=== PATIENT | male | born 1950 | race Caucasian/White ===

== ENCOUNTER → 2020-01-03 | Outpatient (CLI) | payer OTHER | LOC: SJCVCIMAG 15:57 | PROVIDERS: ATTEND Internal Medicine Cardiovascular Disease | DX: I08.8 Other rheumatic multiple valve diseases (principal); R93.1 Abnormal findings on diagnostic imaging of heart and coronary circulation; Z82.49 Family history of ischemic heart disease and other diseases of the circulatory system ==

== ENCOUNTER → 2020-04-03 | Outpatient (CLI) | payer OTHER | LOC: LAB 07:16 | PROVIDERS: ATTEND Internal Medicine Cardiovascular Disease | DX: Z01.812 Encounter for preprocedural laboratory examination (principal); Z20.828 Contact with and (suspected) exposure to other viral communicable diseases ==

== ENCOUNTER → 2020-04-08 | Outpatient (CLI) | payer OTHER ==
[~2020-04-08] VITALS: Ht 185.4 cm; Wt 85.7 kg
[~2020-04-08] MED LIST: ALIGN4 MG PO; CARDIO OMEGA B1 EACH PO; CRESTOR10 MG PO; FLOMAX0.4 MG PO; GLUCOSAMINE-CH1 EACH PO; METOPROLOL SUCC25 M1 PO; UNICOMPLEX M TA1 TA1 PO; XARELTO20 MG PO
[2020-04-08 07:34] LABS: ABSOLUTE NEUTROPHILS 3.2 thou/uL (1.4-8.2); BASOPHILS 0.7 % (0.0-2.0); EOSINOPHILS 1.6 % (0.0-3.0); HEMATOCRIT 44.2 % (42.0-52.0); HEMOGLOBIN 14.7 gm/dL (14.0-18.0); LYMPHOCYTES 40.1 % (24.0-44.0); MCH 30.4 pg (26.0-34.0); MCHC 33.2 g/dL (28.0-37.0); MCV 91.5 fL (80.0-100.0); MONOCYTES 8.8 % (1.0-8.0); PLATELET COUNT 173 thou/uL (150-400); POLYS 48.8 % (36.0-66.0); RBC 4.83 mil/uL (4.50-6.00); RDW 13.3 % (10.5-14.5); WBC 6.5 thou/uL (4.0-11.0)
[2020-04-08 07:38] VITALS: BP 132/81
[2020-04-08 07:42] LABS: APTT 29.9 Seconds (24.5-32.8); CALCIUM 9.1 mg/dL (8.5-10.1); POTASSIUM 3.7 mmol/L (3.5-5.1); PROTIME 10.4 Seconds (9.3-11.4)
[2020-04-08 07:49] LABS: ALBUMIN 3.9 g/dL (3.4-5.0); TOTAL BILIRUBIN 0.6 mg/dL (0.2-1.0)
--- NOTE | 2020-04-08 13:57 | P ---
[facility] [place] [address] PROCEDURE REPORT Name: PERRY FANG Room #: REG [facility]#: [id number] Admission: 04/08/20 Attend Phys: Thuan Peterson MD Discharge: Date of : 54 Report #: [id number] THIS REPORT FOR: cc: Denton Roberson MD, Bernard O. MD Couchonnal, Luis F. MD ~ CC: Denton Peterson DATE OF SERVICE: 04/08/2020 SVT ABLATION PREOPERATIVE DIAGNOSIS: Typical atrial flutter. POSTOPERATIVE DIAGNOSIS: Cavotricuspid isthmus-dependent flutter. PROCEDURES PERFORMED: 1. SVT ablation, 38137. 2. Left atrial pacing and recording, CPT code 21394. 3. Program and stimulation pacing after IV drug infusion, CPT code 60585. 4. Intracardiac echo, CPT code 38300. 5. 3D mapping, CPT code 84068. 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 ANESTHESIA: The patient underwent MAC anesthesia with no anesthesia-related complications. DESCRIPTION OF PROCEDURE: The patient underwent informed consent. We discussed the details of the procedure including the risks, which include but not limited to bleeding, vascular damage, stroke, MD as well as damage to the [place] conduction system. He understood these risks and is willing to proceed. The patient was brought to EP laboratory in a fasting and sedated state and prepped and draped in a standard fashion. I injected lidocaine to the right groin region, obtained access to the right femoral vein x3. I placed 8, 9 and 7-Sierra Leonean short sheath using the modified Seldinger technique. Next, I placed a decapolar catheter easily in the coronary sinus for left atrial pacing and recording, the ICE catheter was placed into the right atrium to visualize the cavotricuspid isthmus. He had a nice long cavotricuspid isthmus with no significant anomalies. I looked at his left atrium and he has a nice thin interatrial septum and appears to have two left and two right pulmonary veins. There was also no evidence of any left atrial thrombus. [address] [address] PROCEDURE REPORT Name: MIGELNAVARROPERRY J [id number] Admission: 04/08/20 Attend Phys: Thuan Peterson MD Discharge: Date of : 54 Report #: [id number] At baseline, the patient was in atrial flutter with a ventricular cycle length of 745 milliseconds and atrial cycle length that was 250 milliseconds with a proximal to distal activation along the CS. The QRS duration was 105 milliseconds, and the QT interval was 340 milliseconds. The HV interval was 37 milliseconds. Next, an 8 mm ablation catheter was placed in the right atrium and an activation map of the atrial flutter was created, which showed counterclockwise atrial flutter. I then performed pacing from 6 o'clock along the cavotricuspid isthmus and the PPI minus tachycardia cycle length was 10 milliseconds consistent with cavotricuspid isthmus dependent flutter. 3D MAPPING AND ABLATION: Next, a detailed 3D geometry of the right atrium had already been created. We had marked the His. Next, ablation was performed at 70 ravi and 60 degrees. A continuous drag lesion was created and after 31 seconds, there was termination of his atrial flutter. I performed additional ablation until I fell into the IVC. I went back and performed additional ablation along the cavotricuspid isthmus. Ablation was discontinued once there were significant signals noted in this region. Next, a differential pacing was performed. Pacing from CS and measuring to the ablation, the transisthmus conduction time was 185 milliseconds, pacing from the ablation both near the line and lateral to the line demonstrated evidence of lateral to medial block as well with a transisthmus conduction time of 200 milliseconds. Post-ablation, the patient was in sinus rhythm with sinus cycle length of 973 milliseconds, ID interval 183 milliseconds, QRS duration 97 milliseconds, QT interval 41 milliseconds. An isoproterenol infusion was initiated at 2 mcg per minute and on isoproterenol, AV block was noted at 300 milliseconds. AV rosana ERP was noted at 210 milliseconds at a [address] cycle length and atrial burst pacing down to 260 milliseconds. I did not induce any AFib or atrial flutter. Aggressive pacing was performed and no other arrhythmias were induced. Isoproterenol was turned off. AV block was noted at 360 milliseconds. Using intracardiac ultrasound, I verified there was no pericardial effusion. We rechecked and 30 minutes post-ablation, there was still evidence of bidirectional block. As such, the procedure was concluded. Catheters and sheaths were pulled and hemostasis was obtained and the patient awoke neurologically and hemodynamically intact with no complications and no significant bleeding. CONCLUSIONS: 1. Successful ablation of cavotricuspid isthmus dependent flutter with evidence of bidirectional block. 2. Normal SA rosana function. 3. Normal AV rosana function. [facility] [address] [place] [address] PROCEDURE REPORT Name: PERRY FANG Nedra Room #: TIGIST Cabe[facility]#: [id number] Admission: 04/08/20 Attend Phys: Thuan Peterson MD Discharge: Date of : 54 Report #: [id number] 4. Normal His-Purkinje function. 5. No other inducible arrhythmias on or off isoproterenol. <ELECTRONICALLY SIGNED> By: Thuan Peterson MD 04/08/20 1357 1052 1200 Thuan Peterson MD /nt
== END | disposition home or self-care (01) ==
LOC: CATH 06:23
PROVIDERS: ATTEND Internal Medicine Cardiovascular Disease
DX: I48.3 Typical atrial flutter (principal); I10 Essential (primary) hypertension; E78.5 Hyperlipidemia, unspecified; Z98.890 Other specified postprocedural states; Z82.49 Family history of ischemic heart disease and other diseases of the circulatory system; Z79.899 Other long term (current) drug therapy; Z79.01 Long term (current) use of anticoagulants
CPT/HCPCS: 62110; 62900; 70005

== ENCOUNTER → 2020-07-09 | Outpatient (CLI) | payer OTHER | LOC: SJCVC 09:02 | PROVIDERS: ATTEND Internal Medicine Cardiovascular Disease | DX: I48.3 Typical atrial flutter (principal); I25.10 Atherosclerotic heart disease of native coronary artery without angina pectoris; I10 Essential (primary) hypertension; E78.5 Hyperlipidemia, unspecified; Z79.899 Other long term (current) drug therapy; Z82.49 Family history of ischemic heart disease and other diseases of the circulatory system ==

== ENCOUNTER → 2021-01-07 | Outpatient (CLI) | payer OTHER | LOC: SJCVC 10:08 | PROVIDERS: ATTEND Internal Medicine Cardiovascular Disease | DX: R00.1 Bradycardia, unspecified (principal); I48.3 Typical atrial flutter; R93.1 Abnormal findings on diagnostic imaging of heart and coronary circulation; I45.2 Bifascicular block; N40.0 Benign prostatic hyperplasia without lower urinary tract symptoms; I25.10 Atherosclerotic heart disease of native coronary artery without angina pectoris; E78.5 Hyperlipidemia, unspecified; I10 Essential (primary) hypertension; Z72.89 Other problems related to lifestyle; Z79.899 Other long term (current) drug therapy ==

== ENCOUNTER 2021-05-17 23:31 | Inpatient (IN) | payer OTHER ==
[~2021-05-17] VITALS: Ht 185.4 cm; Wt 84.9 kg
[2021-05-17 23:41] VITALS: BP 157/95
[2021-05-18] VITALS (10 sets, daily range): BP systolic 110–142; BP diastolic 57–89
[2021-05-18 00:24] LABS: ABSOLUTE NEUTROPHILS 5.4 thou/uL (1.4-8.2); BASOPHILS 0.5 % (0.0-2.0); EOSINOPHILS 1.2 % (0.0-3.0); HEMATOCRIT 39.4 % (42.0-52.0); HEMOGLOBIN 12.9 gm/dL (14.0-18.0); LYMPHOCYTES 32.5 % (24.0-44.0); MCH 29.5 pg (26.0-34.0); MCHC 32.7 g/dL (28.0-37.0); MCV 90.2 fL (80.0-100.0); MONOCYTES 10.8 % (1.0-8.0); PLATELET COUNT 200 thou/uL (150-400); RBC 4.37 mil/uL (4.50-6.00); RDW 13.7 % (10.5-14.5); WBC 9.9 thou/uL (4.0-11.0)
[2021-05-18 00:30] LABS: CALCIUM 9.1 mg/dL (8.5-10.1); CREATININE 1.1 mg/dL (0.7-1.3); POTASSIUM 3.7 mmol/L (3.5-5.1)
[2021-05-18 00:40] LABS: ALBUMIN 3.6 g/dL (3.4-5.0); TOTAL BILIRUBIN 0.4 mg/dL (0.2-1.0); TOTAL PROTEIN 7.2 g/dL (6.4-8.2)
--- NOTE | 2021-05-18 11:11 | NUR ---
Received pt to room 210 from ER @ approx 0940. Pt A&O x4, on RA, SR w/ 1AVB & BBB on the monitor. Pt NPO & going for cardiac cath today w/ Dr. Swenson. Pt up ad gerardo in the room. Admission assessment & forms signed, posted in chart. Pt oriented to room & unit. Will continue to assess pt needs throughout shift.
[2021-05-19 03:34] VITALS: BP 126/82
[2021-05-19 03:54] LABS: HEMATOCRIT 37.6 % (42.0-52.0); HEMOGLOBIN 12.6 gm/dL (14.0-18.0); MCH 30.3 pg (26.0-34.0); MCHC 33.5 g/dL (28.0-37.0); MCV 90.3 fL (80.0-100.0); RBC 4.16 mil/uL (4.50-6.00); RDW 13.8 % (10.5-14.5); WBC 5.9 thou/uL (4.0-11.0)
--- NOTE | 2021-05-19 04:04 | NUR ---
UPON SHIFT REPORT, PT AT BEDSIDE. 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 DISCUSSED PLAN OF CARE WITH PT, ENCOURAGING BEDREST, PT AGREEABLE, URINAL AND BEDSIDE COMMODE PROVIDED. UPON SHIFT ASSESSMENT, PT AOX4. PT DENIES PAIN AND SOB WHILE ON ROOM AIR. PT TOLERATING PO INTAKE OF FLUIDS AND REGULAR DIET WITHOUT ISSUE. PT WITHOUT NAUSEA OR EMESIS. PT VOIDING PER URINAL. FAYE URINE NOTED. PT RESTING IN BED THROUGHOUT SHIFT, FREQUENT REPOSITIONING ENCOURAGED, PT NOTED TO SHIFT INDEPENDENTLY. SENSATION INTACT, CAPILLARY REFILL LESS THAN 3SEC, PERIPHERAL PULSES FAINT TO PALPATION. PT ENCOURAGED TO NOTIFY STAFF FOR ALL NEEDS, CALL LIGHT WITHIN REACH, BED LOCKED IN LOWEST POSITION, FREQUENT MONITORING WILL CONTINUE.
[2021-05-19 04:13] LABS: CALCIUM 8.7 mg/dL (8.5-10.1); POTASSIUM 3.7 mmol/L (3.5-5.1)
[2021-05-19 07:00] VITALS: BP 137/77
--- NOTE | 2021-05-19 09:35 | 2DMMODE ---
[facility] [place] [address] 2 D/M-MODE ECHOCARDIOGRAM Name: PERRY FANG Room #: 210-P ADM IN M.R.#: [id number] Admission: 05/18/21 Attend Phys: Bhavik Kennedy MD Discharge: Date of : 54 Report #: [id number] THIS REPORT FOR: cc: Denton Roberson MD, Bernard O. MD Park, Jin S. MD ~ APPROVED REPORT Study performed: 05/19/2021 09:32:17 EXAM: Comprehensive 2D, Doppler, and color-flow Echocardiogram Patient Location: Bedside Room #: 210 Status: routine BSA: 2.10 HR: 73 bpm BP: 137/77 mmHg Rhythm: NSR Other Information Study Quality: Good Indications Bradycardia 2D Dimensions IVSd: 12.58 (7-11mm) LVOT Diam: 19.96 (18-24mm) LVDd: 49.22 mm PWd: 10.28 (7-11mm) Ascending Ao: 37.05 (22-36mm) LVDs: 31.33 (25-40mm) Left Atrium: 41.79 (27-40mm) Aortic Root: 32.67 mm Volumes Left Atrial Volume (Systole) Single Plane 4CH: 76.37 mL Single Plane 2CH: 74.21 mL Biplane LA Volume: 79.00 mL LA ESV Index: 37.00 mL/m2 Aortic Valve AoV Peak Rodney.: 1.44 m/s AO Peak Gr.: 8.29 mmHg LVOT Max P.71 mmHg LVOT Max V: 0.96 m/s ZENA Vmax: 2.09 cm2 [facility] [address] [place] [address] 2 D/M-MODE ECHOCARDIOGRAM Name: LEONCIOPERRY J Room #: 210-P [facility]#: [id number] Admission: 05/18/21 Attend Phys: Bhavik Kennedy, Discharge: Date of : 54 Report #: [id number] Mitral Valve E/A Ratio: 1.1 MV Decel. Time: 1036.37 ms MV E Max Rodney.: 0.38 m/s MV A Rodney.: 0.34 m/s MV PHT: 300.55 ms Pulmonary Valve PV Peak Rodney.: 1.19 m/s PV Peak Gr.: 5.70 mmHg Pulmonary Vein P Vein S: 0.40 m/s P Vein A: 0.22 m/s P Vein D: 0.31 m/s P Vein A Dur.: 129.2 msec P Vein S/D Ratio: 1.29 Tricuspid Valve TR Peak Rodney.: 2.48 m/s RAP Estimate: 7.00 mmHg TR Peak Gr.: 24.63 mmHg RVSP: 32.00 mmHg Left Ventricle The left ventricle is normal size. There is normal LV segmental wall motion. There is normal left ventricular wall thickness. Left ventricular systolic function is normal. The left ventricular ejection fraction is within the normal range. LVEF is 60-65%. The left ventricular diastolic function is normal. Right Ventricle The right ventricle is normal size. The right ventricular systolic function is normal. Atria Left atrium is mildly dilated. The right atrium size is normal. Aortic Valve The aortic valve is normal in structure. No aortic regurgitation is present. There is no aortic valvular stenosis. Mitral Valve The mitral valve is normal in structure. Mild mitral regurgitation. No evidence of mitral valve stenosis. Tricuspid Valve The tricuspid valve is normal in structure. Mild tricuspid regurgitation. PAP 25 mmHg [facility] [address] [place] [address] 2 D/M-MODE ECHOCARDIOGRAM Name: MIGELNAVARROPERRY Nedra Room #: 210-P [facility] IN [facility]#: [id number] Admission: 05/18/21 Attend Phys: Bhavik Kennedy, Discharge: Date of : 54 Report #: [id number] Pulmonic Valve The pulmonary valve is normal in structure. There is no pulmonic valvular regurgitation. Great Vessels The aortic root is normal in size. IVC is normal in size and collapses >50% with inspiration. Pericardium There is no pericardial effusion. There is no pleural effusion. <Conclusion> The left ventricle is normal size. There is normal left ventricular wall thickness. Left ventricular systolic function is normal. The left ventricular diastolic function is normal. The right ventricle is normal size. Left atrium is mildly dilated. The aortic valve is normal in structure. Mild mitral regurgitation. Mild tricuspid regurgitation. <ELECTRONICALLY SIGNED> By: Chip Swenson MD 05/19/21933 3 3 Chip Swenson MD /INF
--- NOTE | 2021-05-19 10:04 | NUR ---
Assumed care of pt this AM. Pt is A&O x4, on RA. SR w/ 1AVB on the monitor. Pt denies any chest pain. Pt up ad gerardo in room. No bradycardia events at this time for shift.
--- NOTE | 2021-05-19 10:06 | CATHLAB ---
[facility] [place] [address] INVASIVE PROCEDURE REPORT Name: PERRY FANG Room #: 210-P ADM IN M.R.#: [id number] Admission: 05/18/21 Attend Phys: Bhavik Kennedy MD Discharge: Date of : 54 Report #: [id number] THIS REPORT FOR: cc: Denton Roberson MD, Bernard O. MD Park, Jin S. MD ~ APPROVED REPORT Study performed: 05/18/2021 10:38:37 Patient Details Patient Status: In-Patient Room #: 210 The patient is a 71 year-old male Event Personnel Chip Swenson Convention Planner, Nuzhat Pugh RN RN, Lucy Mcclellan RTR Estrada Crain Roberta Monitor Procedures Performed Art Access - R femoral artery* Left Heart Cath w/or w/o Coronaries [id number] [facility] [address] Initial Mod Sed Same Phys/QHP Gr5y 238789 52308 Mod Sed Same Phys/QHP Ea 838671 Hemostasis with Manual pressure Indication Arrhythmia, The patient presented with lightheadedness, found to have significant sinus bradycardia with abnormal troponin levels. Risk Factors Hypercholesterolemia, Coronary Artery Disease Procedure Narrative The Right Groin^ was infiltrated with subcutaneous anesthesia. A PINNACLE 4FR Sheath #[id number] sheath was inserted into the RFA^. Coronary angiography was performed using coronary diagnostic catheters. The right coronary system was accessed and visualized with a JR4 catheter. The left coronary system was accessed and visualized with a JL4 catheter. Hemostasis was obtained with manual pressure following sheath removal without any complications. Intraoperative Conscious Sedation Sedation start time: 1055 Case end Time: 1132 Fentanyl 75 mcg Versed 1.[address] [address] INVASIVE PROCEDURE REPORT Name: PERRY FANG Room #: 210-P [facility]#: [id number] Admission: 05/18/21 Attend Phys: Bhavik Kennedy, Discharge: Date of : 54 Report #: [id number] Fluoro Time: 4.39 minutes Dose: DAP 4364.80 cGycm2 456 mGy Contrast Type and Amount: Omnipaque 100 ml Coronary Angiography The patient's coronary anatomy is right dominant. Diagnostic Cath Left Main The left main artery is a large-caliber vessel, appears angiographically normal. LAD The LAD is a moderate-sized caliber vessel, traverses the anterior wall and terminates at the apex. There is a mild stenosis in the proximal segment, 20%. Diagonal 1 This is a small to moderate-sized caliber vessel, patent with no flow-limiting lesions. Diagonal 2 This is a small to moderate-sized caliber vessel, patent with no flow-limiting lesions. Diagonal 3 This is a small to moderate-sized caliber vessel, patent with no flow-limiting lesions. Circumflex The left circumflex artery is a moderate-sized caliber vessel with a mild stenosis in the proximal segment, 30%. OM1 This is a small caliber vessel, with no flow-limiting lesions. OM2 This is a small caliber vessel, with no flow-limiting lesions. OM3 This is a moderate-sized caliber vessel, patent with no flow-limiting lesions. Right Coronary The RCA is a dominant vessel with a mild stenosis in the proximal segment, 30%. R PDA This is a moderate-sized caliber vessel, patent with no flow-limiting lesions. RPLV This is a moderate-sized caliber vessel, patent with no flow-limiting lesions. Left Ventriculography Left Ventriculography was not performed. Ejection Fraction was 55-60% based off patient's Echocardiogram. Hemodynamics The aortic pressure is 139/71 mmHg with a mean of 104 mmHg. Conclusion 1. There is mild, nonobstructive disease in the epicardial vessels. 2. This is a right dominant system. [address] [address] INVASIVE PROCEDURE REPORT Name: PERRY FANG Room #: 210-P [facility] IN .R.#: [id number] Admission: 05/18/21 Attend Phys: Bhavik Kennedy, Discharge: Date of : 54 Report #: [id number] 3. There is normal LV systolic function. 4. Recommend risk factor management. <ELECTRONICALLY SIGNED> By: Chip Swenson MD 05/19/211004 04 04 Chip Swenson MD /INF
--- NOTE | 2021-05-19 10:08 | HC ---
[facility] [place] [address] CONSULTATION Name: PERRY FANG Room #: 210-P ADM IN M.R.#: [id number] Admission: 05/18/21 Attend Phys: Bhavik Kennedy MD Discharge: Date of : 54 Report #: [id number] THIS REPORT FOR: cc: Denton Roberson MD, Bernard O. MD Park, Jin S. MD ~ DATE OF SERVICE: 05/18/2021 CARDIOLOGY CONSULTATION INDICATION: Bradycardia. HISTORY OF PRESENT ILLNESS: This is a 71-year-old gentleman with a history of atrial flutter ablation in 03/2020, coronary artery calcium, hypercholesterolemia and BPH, presenting with bradycardia. He is an avid bike rider on a regular basis. Yesterday, he went on a 30-mile ride, did not go as fast as he normally does, although he denies any chest pains or shortness of breath. Last evening, he reports "not feeling right." He did not feel right. He denies any specific complaints of shortness of breath or chest pains. At one point, he did feel lightheaded with standing, which was transient. He just did not feel well and took his measurements and noted a heart rate in the 30s. There is no history of fever, chills or cough. He presented to the ER as he continued to not feel right. EKG reveals sinus bradycardia with heart rate of 36 beats per minute. Laboratory tests reveal a troponin of 165 and 127. PAST MEDICAL HISTORY: Atrial flutter ablation, BPH, hyperlipidemia. ALLERGIES: None. MEDICATIONS: At home include Crestor 10 mg, multivitamins, tamsulosin. SOCIAL HISTORY: Negative for tobacco use. FAMILY HISTORY: Negative for premature CAD. REVIEW OF SYSTEMS: A full 10-point review of systems performed, only the pertinent positives and negatives are described in the HPI. PHYSICAL EXAMINATION: VITAL SIGNS: Blood pressure is 120/60, heart rate is 50 beats per minute. GENERAL APPEARANCE: He is a well-developed, well-nourished male in no acute distress. HEENT: Normocephalic, atraumatic. Oral mucosa moist. NECK: Supple. LUNGS: CTA. CARDIAC: Regular rate and rhythm, S1, S2 positive. [facility] [address] [place] [address] CONSULTATION Name: PERRY FANG Room #: 210-[facility] IN .R.#: [id number] Admission: 05/18/21 Attend Phys: Bhavik Kennedy MD Discharge: Date of : 54 Report #: [id number] ABDOMEN: Soft, nontender. EXTREMITIES: No cyanosis, no edema. DIAGNOSTIC DATA: ECG reveals sinus bradycardia, heart rate of 36 beats per minute. LABORATORY DATA: Troponin is 165 and 127. T3 level is normal. White count is 9.9, hemoglobin is 12.9. BUN is 25, creatinine is 1.1. ASSESSMENT AND PLAN: 1. Acute coronary syndrome with positive troponin levels. I suspect that he may have silent ischemia. He did not feel well yesterday, but no specific symptoms. Has a history of coronary artery calcium. I have discussed with him the risks and benefits of a cardiac catheterization. All questions were answered and he wishes to proceed. 2. Sick sinus syndrome, sinus bradycardia, may need a pacemaker. We will need to rule out obstructive CAD first. 3. Hypercholesterolemia, continue with statin therapy. <ELECTRONICALLY SIGNED> By: Chip Swenson MD 05/19/21 1008 0802 0851 Chip Swenson MD /nt
[2021-05-19 11:00] VITALS: BP 115/79
[2021-05-19 15:00] VITALS: BP 130/69
[2021-05-19 20:23] LABS: PROTIME 10.9 Seconds (10.5-12.1)
[2021-05-19 20:40] VITALS: BP 118/72
[2021-05-20 04:30] VITALS: BP 124/72
--- NOTE | 2021-05-20 07:11 | EKG ---
[address] [address] ELECTROCARDIOGRAM REPORT Name: PERRY FANG Nedra Room #: 210-P ADM IN M.R.#: [id number] Admission: 05/18/21 Attend Phys: Bhavik Kennedy MD Discharge: Date of : 54 Report #: [id number] [facility] ED Test Date: 2021-05-17 Test Time: 23:52:11 Pat Name: PERRY FANG Department: Room: 210 P Gender: M Electrical Products Sales Engineer: miguelina : 1950 Requested By: Danny Rebolledo Order Number: [id number] MD: Chase Hernandez Measurements Intervals Edgard Rate: 36 P: 17 MA: 140 QRS: 27 QRSD: 119 T: 6 QT: 478 QTc: 370 Interpretive Statements Sinus bradycardia Nonspecific intraventricular conduction delay Borderline ST elevation, anterior leads Baseline wander in lead(s) V2 No previous ECG available for comparison Electronically Signed On 05-20-2021 7:10:55 EAP CLINICIAN by Chase Hernandez [email or web address] <ELECTRONICALLY SIGNED> By: Chase Hernandez MD, MERGED WITH [facility] 05/20/21 0710 51 51 Chase Hernandez MD, FACC /EPI
--- NOTE | 2021-05-20 07:11 | EKG ---
[address] [address] ELECTROCARDIOGRAM REPORT Name: PERRY FANG Nedra Room #: 210-P ADM IN M.R.#: [id number] Admission: 05/18/21 Attend Phys: Bhavik Kennedy MD Discharge: Date of : 54 Report #: [id number] [facility] ED Test Date: 2021-05-18 Test Time: 01:08:17 Pat Name: PERRY FANG Department: Room: 210 P Gender: M Oil Refiner: tb : 1950 Requested By: Danny Rebolledo Order Number: [id number] MD: Chase Hernandez Measurements Intervals Lane Rate: 38 P: 6 [place]: 112 QRS: 3 QRSD: 99 T: -4 QT: 495 QTc: 394 Interpretive Statements Sinus bradycardia Atrial premature complex Borderline short [place] interval Borderline T abnormalities, inferior leads Compared to ECG 05/17/2021 23:52:11 Atrial premature complex(es) now present T-wave abnormality now present Intraventricular conduction delay no longer present ST (T wave) deviation no longer present Electronically Signed On 05-20-2021 7:11:20 [employer] CONCRETE IRONWORKER by Chase Hernandez [email or web address] <ELECTRONICALLY SIGNED> By: Chase Hernandez MD, FAC 05/20/21 0711 7 7 Chase Hernandez MD, MERGED WITH [facility] /EPI
--- NOTE | 2021-05-20 10:16 | NUR ---
PT HAD LEFT FLOOR FOR PACEMAKER PRIOR TO MY SHIFT, ARRIVED BACK FROM PROCEDURE AT APPROXIMATELY 1010 AM. PT DENIES ANY COMPLAINTS.
[2021-05-20 12:00] VITALS: BP 118/77
[2021-05-20 16:00] VITALS: BP 122/72
--- NOTE | 2021-05-20 17:54 | NUR ---
PT HAD A PACEMAKER PLACED THIS AM. PT DENIES ANY COMPLAINTS THROUGHOUT THE SHIFT. PT HAS A INCISION UPPER LEFT CHEST THAT HAS BEEN C/D/I. CARDIAC RHYTHM HAS BEEN GOING BETWEEN SINUS FRANCOIS AND PACED.
[2021-05-20 20:00] VITALS: BP 130/70
[2021-05-21] VITALS: BP 172/92
--- NOTE | 2021-05-21 02:19 | NUR ---
PT IS PLEASANT ALERT AND ORIENTED X4. LUNGS ARE CLEAR TO DIMINISHED. BOWEL SOUNDS ACTIVE X4. WAS HERE EARLIER VISITING PT AT BEDSIDE. INCISION IS ON LEFT UPPER CHEST PACEMAKER PLACED. DENIES ANY COMPLAINTS OF PAIN ISSUES. ANTIBITOICS GIVEN. ASSESSMENTS DONE SLEEP INTERUPTED WITH ASSESSMENT. CALL LIGHT WITHIN REACH IF NEEDS ASSSISTANCE. SLING IN LEFT ARM GOOD CIRCULATION PULSES 2 PLUS AND FINGERS PINK.
[2021-05-21 05:16] VITALS: BP 139/89
[2021-05-21 07:00] VITALS: BP 132/82
--- NOTE | 2021-05-21 08:46 | NUR ---
Assumed care of pt this AM. Pt is A&O x4, on RA, SR on the monitor. Pacemaker placed yesterday, lt arm sling still intact & on. Pt reports some discomfort of lt chest. [employer] rep here to talk w/ pt. Pt w/ CXR this AM. Plan to discharge today.
[2021-05-21 10:08] VITALS: BP 132/82
== END 2021-05-21 12:07 | disposition home or self-care (01) | DRG 243 ==
LOC: ER 23:31 → 2N 05-18 02:10 → EROBS 05-18 02:10 → 2N 05-18 09:10
PROVIDERS: Emergency Medicine; Internal Medicine Cardiovascular Disease; Nurse Practitioner; ADMIT Internal Medicine; ATTEND Internal Medicine
DX: I49.5 Sick sinus syndrome (principal); I24.9 Acute ischemic heart disease, unspecified; R77.8 Other specified abnormalities of plasma proteins; Z20.822 Contact with and (suspected) exposure to COVID-19; N40.0 Benign prostatic hyperplasia without lower urinary tract symptoms; E78.5 Hyperlipidemia, unspecified; E78.00 Pure hypercholesterolemia, unspecified; I45.5 Other specified heart block; Z82.49 Family history of ischemic heart disease and other diseases of the circulatory system
CPT/HCPCS: 10081; 62110; 62900